=== PATIENT | female | born 1940 | race Two or more races ===

== ENCOUNTER 2023-05-25 19:20 | Outpatient (CLI) | payer MEDICARE, OTHER ==
--- NOTE | 2023-06-01 06:41 | SLS ---
SLEEP STUDY STUDY PERFORMED: Polysomnography report. HISTORY OF PRESENT ILLNESS: This is an 82-year-old female patient with history of snoring and the patient is a long sleeper with limited hypersomnia during the day and the patient carries an Ruby score of 10. No witnessed apneas. No significant weight gain over the years. 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 No significant cardiovascular complications. Comorbid conditions include history of breast cancer, hypertension, hypothyroidism, hyperlipidemia, and the patient had recovered from an ankle fracture, underwent an ORIF, and the patient is currently moving with the help of a cane without any active pain issues. PERTINENT PHYSICAL FINDINGS: Height is 5 feet 4 inches, weight is 193, BMI is 33.3. TECHNICAL DESCRIPTION: The sleep evaluation of the patient consisted of clinical polysomnography, nocturnal respiratory battery, left and right anterior tibialis surface electromyography. The standard montage for the clinical polysomnography included the EEG, EOG, EMG, and EKG. Respiratory battery included measurements of nasal/buccal airflow, thoracic, and/or abdominal effort and intercostal surface EMG. Nocturnal oxyhemoglobin saturations were obtained by finger oximetry. Digital video and audio monitoring were done throughout the entire night to check or parasomnias. SLEEP ARCHITECTURE: Total recording time was 393.0 minutes. Total sleep time was 248.5 minutes. The overall sleep efficiency was 63.2%. Latency to sleep onset was 33.5 minutes. The sleep architecture was characterized by 12.5% stage I, 72.6% stage II, 2.4% stage III, and 12.5% REM sleep. The wake after sleep onset time was 110.5 minutes. Latency to REM sleep was 65.5 minutes. SLEEP CONTINUITY SUMMARY: The patient had a total of 83 arousals with an arousal index of 20. Respiratory arousal index was 0.2. PERIODIC LIMB MOVEMENT ACTIVITY: There were a total of 81 periodic limb movement activity with an index of 19.6. There were only 10 periodic limb with activities with arousals with an index of 2.4. CARDIAC SUMMARY: Average heart rate was 69, minimum heart rate 66, maximum heart rate was 73. RESPIRATORY ANALYSIS: The sleep study showed a total of 31 obstructive events of which 0 were obstructive apneas, 0 mixed apneas, 31 were obstructive hypopneas, and the patient has an AHI of 7.5. This is consistent with mild obstructive sleep apnea. No central apnea was noted. On a separate note, the patient had nocturnal oxygen saturation. The baseline pulse ox while awake was 88%. The lowest pulse ox was 59% during non-REM sleep. The minimum pulse ox during REM sleep was 65% and the patient spent approximately 1 hour and 49 minute of sleep time at a pulse ox of below 89%. ASSESSMENT: 1. Mild obstructive sleep apnea with an AHI of 7.5. 2. Significant nocturnal oxygen desaturation probably related to some baseline hypoxemia as the patient's pulse ox at baseline while awake was 89% and the patient encountered significant desaturations overnight spending approximately 1 hour and 49 minutes of sleep time below pulse ox of 89%. 3. Mild periodic limb movement activity, no arousals related to PLMS. 4. Delayed sleep onset, probably related to first-night effect. 5. Increase in wake after sleep onset time. Rest of the sleep architecture shows some over representation of stage 2 sleep with diminished delta wave and REM sleep. 6. History of breast cancer with previous mastectomy on the left. 7. Hypertension. 8. Hyperlipidemia. 9. Hypothyroidism. PLAN: I would like to discuss the findings with the patient. Obviously, the severity of sleep apnea is mild in this patient and the patient's AHI was calculated to be at around 7.5. Of concern is the nocturnal oxygen desaturations noted during this study. I would like to reevaluate the pulmonary status as the patient also has some baseline hypoxemia. May benefit from nocturnal oxygen supplementation should there be ongoing oxygen desaturation. No immediate need for CPAP therapy. We will continue to follow. MMODL / IJN: [id number] /
== END 2023-05-26 06:00 | disposition home or self-care (01) ==
LOC: 3 N SLEEP 19:20
PROVIDERS: ATTEND Internal Medicine Critical Care Medicine
DX: G47.33 Obstructive sleep apnea (adult) (pediatric) (principal); G47.10 Hypersomnia, unspecified; G47.36 Sleep related hypoventilation in conditions classified elsewhere; G47.61 Periodic limb movement disorder; G47.21 Circadian rhythm sleep disorder, delayed sleep phase type; G47.52 REM sleep behavior disorder; I10 Essential (primary) hypertension; E78.5 Hyperlipidemia, unspecified; F51.3 Sleepwalking [somnambulism]; E03.9 Hypothyroidism, unspecified; Z85.3 Personal history of malignant neoplasm of breast; Z90.12 Acquired absence of left breast and nipple
CPT/HCPCS: 95810

== ENCOUNTER 2024-05-23 19:41 | Outpatient (CLI) | payer MEDICARE, OTHER ==
--- NOTE | 2024-05-29 00:24 | P.PCN ---
Date of Procedure: 05/23/24 Operative Findings: CPAP titration summary Date of service is 05/23/2024 Pertinent history This is a 83-year-old female patient was found to have mild obstructive sleep apnea and the patient was found to have an AHI of 7.6. The patient also has history of chronic hypoxic/hypercapnic respiratory failure. She is obese and she has restrictive lung disease related to her obesity. No history of any interstitial lung disease. No history of any pulmonary fibrosis. The patient has had previous hospitalization due to respiratory failure and a component of CHF. Her echocardiogram showed a normal ejection fraction without any valvular heart disease. Based on all this, the patient is coming into the sleep center to undergo a CPAP titration. Other comorbidities include history of breast cancer, hyperlipidemia, hypothyroidism, hypertension and neuropathy. Her Temple score is at 10. No history of stroke. She has diastolic heart failure. Pertinent physical findings The hide is 5 feet and 4 inches with a weight of 189 pounds and a body mass index of 32.4 Technical description The patient was studied using a standard complex polysomnography protocol that included recording of the Lead II EKG, Central, occipital and frontal EEG, right and left outer canthus EOG, submental EMG, right and left anterior tibialis EMG, respiratory airflow by thermocouple and or pressure/flow transducer, respiratory efforts by abdominal and thoracic PVDF belts, oxygen saturation by cable oximetry. Position by observation synchronized the PSG. Equipment used: [email or web address]. Stepwise CPAP titration was done to eliminate obstructive respiratory events and oxygen saturations. Sleep architecture The total recording duration was 4 9.0 minutes. Total sleep time was 364.0 minutes and the overall sleep efficiency was 89%. The wake after sleep onset time was 70.5 minutes. The patient's sleep latency was 12.5 minutes and the latest REM sleep was 86 minutes. The sleep architecture was catheterized by 0.3% stage I, 74.7% stage II, 1% stage III, and a total of 24% REM sleep. The total arousal index was 13.2. CPAP titration summary The patient was started on CPAP therapy at a pressure of 5 cm of water pressure was gradually increased by increments of 1 cm to reach a maximum CPAP pressure of 15 cm of water. Oxygen was also added during the titration and this was set at 1.5 L. During the titration, the patient did encounter some oxygen saturations which were essentially eliminated by CPAP therapy and oxygen supplementation through his CPAP admitted the pressure of 14 and 15 cm of water, the patient encountered REM sleep and the patient was sleeping in his side while his body position. Pressure of 15 cm of water essentially eliminated obstructive respiratory events maintaining an oxygen saturation above 90%. Sleep continuity summary The patient open of 18 arousals with an arousal index of 13.2 and a respiratory arousal index was 0.2 Periodic limb movement summary Only a total of 4 periodic limb movement activity with arousals with a periodic limb movement activity arousal index of 0.7 Cardiac summary Average heart rate was 55 with a minimum heart of 52 and a maximum heart of 58 Assessment Mild obstructive sleep apnea with an AHI of 7.5 Chronic hypoxic/hypercapnic respiratory failure Obesity with a BMI of 32.4 Chronic hypersomnia with an Temple score of 10 Hypertension Hyperlipidemia Hypothyroidism Breast cancer CHF with diastolic heart failure Plan Will treat this patient with a CPAP pressure of 15 cm of water with a C-Flex of 3 along with oxygen flow of 2 L Will provide the patient AirFit P10 medium size nasal pillows Encourage weight loss Optimize sleep hygiene measures Follow-up with me in the sleep center in 30 to 90 days to assess clinical response and compliancy
== END 2024-05-24 06:00 | disposition home or self-care (01) ==
LOC: 3 N SLEEP 19:41
PROVIDERS: ATTEND Internal Medicine Critical Care Medicine
DX: G47.33 Obstructive sleep apnea (adult) (pediatric) (principal); E66.9 Obesity, unspecified; Z68.32 Body mass index [BMI] 32.0-32.9, adult; I11.0 Hypertensive heart disease with heart failure; I50.30 Unspecified diastolic (congestive) heart failure; E78.5 Hyperlipidemia, unspecified; E03.9 Hypothyroidism, unspecified; J96.12 Chronic respiratory failure with hypercapnia; J96.11 Chronic respiratory failure with hypoxia; Z85.3 Personal history of malignant neoplasm of breast
CPT/HCPCS: 95811